=== PATIENT | male | born 1980 | race Caucasian/White ===

== ENCOUNTER 2016-05-24 20:33 | Emergency (ER) | payer OTHER ==
[~2016-05-24] VITALS: Ht 162.6 cm; Wt 125.2 kg
[~2016-05-24 20:33] MED LIST: GLUCTAB PO
[2016-05-24 20:42] VITALS: BP 135/88; PULSE 100; RESP 16; TEMP 98.9; O2SAT 99
--- NOTE | 2016-05-24 21:25 | PD ---
HPI Chief Complaint: Skin Problem Time Seen by Provider: 21:23 Travel History International Travel<30 days: No Contact w/Intl Traveler<30days: No Traveled to known affect area: No History of Present Illness HPI 35-year-old male presents to the emergency department by private transportation the care of his significant other for evaluation of a sore to the left buttock cheek area. Patient has noticed this sore developing over the past week because he has been wearing tight cargo pants and notes that the scene of the cargo pants seems to wedge between the buttock cheek region causing him irritation. Since noting this discomfort he is identified a small area of ulceration to the skin of the left buttock cheek. Patient denies fever chills nausea vomiting. Patient is not noticed any increased swelling redness or tenderness in the area. Patient only notes irritation to the area when he is wearing the tight cargo pants. Patient states other clothing is not causing him any issue. Patient reports he is a diabetic but is diet-controlled. Patient states blood sugars been running around 250 or less. Patient states he just ate a meal prior to arrival to the emergency department. PFSH Past Medical History Asthma: Yes Diabetes: Yes (DOES NOT TAKE MEDICATION) Patient Takes Glucophage: No Diminished Hearing: No GERD: Yes Immunizations Current: No Tetanus Vaccination: Unknown Influenza Vaccination: No Social History Alcohol Use: Yes (RARELY) Tobacco Use: No (QUIT 20 YRS AGO) Substance Use: No Allergies-Medications (Allergen,Severity, Reaction): Coded Allergies: No Known Allergies (Unverified , 05/24/16) Reported Meds & Prescriptions Reported Meds & Active Scripts Active Metformin (Metformin HCl) 500 Mg Tab 500 Mg PO BIDPC With meals Bactroban Topical (Mupirocin) 2 % Cream 1 Applic TOPICAL TID Keflex (Cephalexin) 500 Mg Cap 500 Mg PO Q6H 7 Days Review of Systems Except as stated in HPI: all other systems reviewed are Neg General / Constitutional: No: Fever, Chills HENT: No: Congestion Cardiovascular: No: Chest Pain or Discomfort Respiratory: No: Shortness of Breath Gastrointestinal: No: Nausea, Vomiting, Abdominal Pain Genitourinary: No: Dysuria, Flank Pain Musculoskeletal: No: Myalgias, Arthralgias Skin: Positive Rash (left buttock cheek), No Itching, No Lumps, No Hives Neurologic: No: Weakness, Dizziness, Syncope Psychiatric: No: Anxiety Endocrine: No: Polyuria, Polydipsia Hematologic/Lymphatic: No: Lymph Node Enlargement Physical Exam Narrative GENERAL: Well-developed well-nourished male in no acute distress no respiratory distress SKIN: Warm and dry. Attention left buttock just caudad to the buttock cleft on the left cheek 1 cm by half centimeter however avoid skin breakdown with superficial ulceration no induration no fluctuance no erythema no increased warmth scant serous drainage/seropurulent drainage. Nontender to palpation. HEAD: Normocephalic. EYES: No scleral icterus. No injection or drainage. NECK: Supple, trachea midline. No JVD or lymphadenopathy. CARDIOVASCULAR: Regular rate and rhythm without murmurs, gallops, or rubs. RESPIRATORY: Breath sounds equal bilaterally. No accessory muscle use. GASTROINTESTINAL: Abdomen soft, non-tender, nondistended. MUSCULOSKELETAL: No cyanosis, or edema. BACK: Nontender without obvious deformity. No CVA tenderness. Data Data Last Documented VS Vital Signs Date Time Temp Pulse Resp B/P Pulse Ox O2 Delivery O2 Flow Rate FiO2 05/25/16 01:21 84 18 103/56 97 05/24/16 20:42 98.9 Room Air Orders Wound Culture And Gram Stain (05/24/16 21:33) Blood Glucose (05/24/16 21:33) Complete Blood Count With Diff (05/24/16 21:45) Basic Metabolic Panel (Bmp) (05/24/16 21:45) Urinalysis - C+S If Indicated (05/24/16 21:45) Beta Hydroxybutyrate (Acetone) (05/24/16 21:45) Sodium Chlor 0.9% 1000 Ml Inj (Ns 1000 M (05/24/16 21:45) Insulin Human Regular Inj (Novolin R Inj (05/24/16 21:45) Blood Glucose (05/24/16 21:45) Blood Culture (05/24/16 21:45) Urine Culture (05/24/16 22:10) Levofloxacin (Levaquin) (05/25/16 09:00) Levofloxacin (Levaquin) (05/24/16 23:15) Labs Laboratory Tests Test 05/24/16 22:10 White Blood Count 13.0 TH/MM3 Red Blood Count 5.46 MIL/MM3 Hemoglobin 12.2 GM/DL Hematocrit 37.4 % Mean Corpuscular Volume 68.5 FL Mean Corpuscular Hemoglobin 22.4 PG Mean Corpuscular Hemoglobin 32.7 % Concent Red Cell Distribution Width 14.2 % Platelet Count 291 TH/MM3 Mean Platelet Volume 8.8 FL Neutrophils (%) (Auto) 65.5 % Lymphocytes (%) (Auto) 22.8 % Monocytes (%) (Auto) 5.2 % Eosinophils (%) (Auto) 4.1 % Basophils (%) (Auto) 2.4 % Neutrophils # (Auto) 8.5 TH/MM3 Lymphocytes # (Auto) 3.0 TH/MM3 Monocytes # (Auto) 0.7 TH/MM3 Eosinophils # (Auto) 0.5 TH/MM3 Basophils # (Auto) 0.3 TH/MM3 CBC Comment DIFF FINAL Differential Comment Urine Color YELLOW Urine Turbidity CLEAR Urine pH 6.0 Urine Specific [place] 1.027 Urine Protein NEG mg/dL Urine Glucose (UA) 1000 OR GREATER mg/dL Urine Ketones NEG mg/dL Urine Occult Blood NEG Urine Nitrite NEG Urine Bilirubin NEG Urine Leukocyte Esterase NEG Urine RBC 0-3 /hpf Urine WBC 9-14 /hpf Urine WBC Clumps OCC Urine Squamous Epithelial 0-5 /hpf Cells Urine Bacteria MANY /hpf Microscopic Urinalysis Comment CULTURE INDICATED Sodium Level 135 MEQ/L Potassium Level 4.0 MEQ/L Chloride Level 99 MEQ/L Carbon Dioxide Level 26.0 MEQ/L Anion Gap 10 MEQ/L Blood Urea Nitrogen 11 MG/DL Creatinine 1.00 MG/DL Estimat Glomerular Filtration 85 ML/MIN Rate Random Glucose 465 MG/DL Calcium Level 9.1 MG/DL B-Hydroxybutyrate 0.09 MMOL/L [facility] Medical Decision Making Medical Screen Exam Complete: Yes Emergency Medical Condition: Yes Medical Record Reviewed: Yes Interpretation(s) Laboratory Tests Test 05/24/16 22:10 White Blood Count 13.0 TH/MM3 Red Blood Count 5.46 MIL/MM3 Hemoglobin 12.2 GM/DL Hematocrit 37.4 % Mean Corpuscular Volume 68.5 FL Mean Corpuscular Hemoglobin 22.4 PG Mean Corpuscular Hemoglobin 32.7 % Concent Red Cell Distribution Width 14.2 % Platelet Count 291 TH/MM3 Mean Platelet Volume 8.8 FL Neutrophils (%) (Auto) 65.5 % Lymphocytes (%) (Auto) 22.8 % Monocytes (%) (Auto) 5.2 % Eosinophils (%) (Auto) 4.1 % Basophils (%) (Auto) 2.4 % Neutrophils # (Auto) 8.5 TH/MM3 Lymphocytes # (Auto) 3.0 TH/MM3 Monocytes # (Auto) 0.7 TH/MM3 Eosinophils # (Auto) 0.5 TH/MM3 Basophils # (Auto) 0.3 TH/MM3 CBC Comment DIFF FINAL Differential Comment Urine Color YELLOW Urine Turbidity CLEAR Urine pH 6.0 Urine Specific [place] 1.027 Urine Protein NEG mg/dL Urine Glucose (UA) 1000 OR GREATER mg/dL Urine Ketones NEG mg/dL Urine Occult Blood NEG Urine Nitrite NEG Urine Bilirubin NEG Urine Leukocyte Esterase NEG Urine RBC 0-3 /hpf Urine WBC 9-14 /hpf Urine WBC Clumps OCC Urine Squamous Epithelial 0-5 /hpf Cells Urine Bacteria MANY /hpf Microscopic Urinalysis Comment CULTURE INDICATED Sodium Level 135 MEQ/L Potassium Level 4.0 MEQ/L Chloride Level 99 MEQ/L Carbon Dioxide Level 26.0 MEQ/L Anion Gap 10 MEQ/L Blood Urea Nitrogen 11 MG/DL Creatinine 1.00 MG/DL Estimat Glomerular Filtration 85 ML/MIN Rate Random Glucose 465 MG/DL Calcium Level 9.1 MG/DL B-Hydroxybutyrate 0.09 MMOL/L Differential Diagnosis Pressure ulcer, stasis ulcer, erosive dermatitis, abscess, cellulitis, uncontrolled diabetes, DKA Narrative Course No lower extremity pain or swelling or tenderness to palpation BG 461; patient reports recently post prandial just prior to arrival to the ED Patient has been diabetic 2 years has not had any medical management for at least one year presents now with skin ulceration and elevated blood glucose; IV access obtained specimens collected and sent for resulting patient administered subcutaneous dose of regular insulin Culture obtained from ulceration site Patient with improved blood glucose after 10 units of subcutaneous regular insulin, 386; patient is stable for outpatient management and also provided Rx for metformin Diagnosis Primary Impression: Pressure sore on buttocks Qualified Code: L89.321 - Decubitus ulcer of left buttock, stage 1 Additional Impressions: UTI (urinary tract infection) Diabetes Qualified Code: E11.622 - Type 2 diabetes mellitus with other skin ulcer, without long-term current use of insulin Referrals: Primary Care Physician call for appointment Patient Instructions: General Instructions Departure Forms: Tests/Procedures, Work Release Special Instructions: No work 2 days Additional Instructions: Follow-up with primary care physician/clinic call office in a.m. No work 2 days Take medication as prescribed Return to the emergency department for pain fever vomiting or any concerns Monitor blood sugars with meals Med/Other Pt SpecificInfo: Prescription(s) given Scripts Metformin 500 Mg [id number] Mg PO BIDPC #60 TAB Ref 0 With meals Prov:Krupa Castellano MD 05/25/16 Mupirocin Topical (Bactroban Topical)2 % Cream1 Applic TOPICAL TID #1 TUBE Ref 0 Prov:Krupa Castellano MD 05/24/16 Cephalexin (Keflex)500 Mg [id number] Mg PO Q6H 7 Days Ref 0 Prov:Krupa Castellano MD 05/24/16 Disposition: 01 DISCHARGE HOME Condition: Stable Krupa Castellano MD May 24, 2016 21:25
[2016-05-24] MEDS ORDERED: MUPI2%T TOPICAL (21:33)
[2016-05-24] MEDS ORDERED: CEPH-460 PO (21:33)
[2016-05-24 21:45] VITALS: PULSE 107
[2016-05-24] MEDS ORDERED: INSULIN HUMAN REGULAR 1,000 UNITS/10 ML VIAL SQ ONE (21:45)
[2016-05-24] MEDS ORDERED: SODIUM CHLOR 0.9% 1000 ML INJ 1,000 ML IV ONE (21:45)
[2016-05-24 22:23] LABS: BLOOD, URINE NEG (NEG); KETONE, URINE NEG (NEG); NITRITE,URINE NEG (NEG)
[2016-05-24 22:24] LABS: AUTOMATED NEUTROPHIL # 8.5 TH/MM3 (1.8-7.7); BASOPHIL # 0.3 TH/MM3 (0-0.2); BASOPHIL % 2.4 % (0.0-2.0); EOSINOPHIL # 0.5 TH/MM3 (0-0.4); EOSINOPHIL % 4.1 % (0.0-4.0); HEMATOCRIT 37.4 % (39.0-51.0); LYMPH % 22.8 % (9.0-44.0); MEAN CELL VOLUME 68.5 FL (80.0-100.0); MEAN CORPUSCULAR HEMOGLOBIN 22.4 PG (27.0-34.0); MEAN CORPUSCULAR HGB CONC 32.7 % (32.0-36.0); MONO % 5.2 % (0.0-8.0); NEUT % 65.5 % (16.0-70.0); PLATELET COUNT 291 TH/MM3 (150-450); RED BLOOD COUNT 5.46 MIL/MM3 (4.50-5.90); RED CELL DISTRIBUTION WIDTH 14.2 % (11.6-17.2)
[2016-05-24 22:25] LABS: HEMO FLAGS DIFF FINAL
[2016-05-24 22:27] LABS: GLUCOSE,URINE 1000 OR GREATER mg/dL (NEG); URINE COLOR YELLOW (YELLW/STRAW)
[2016-05-24 22:28] LABS: BACTERIA, URINE MANY /hpf; COMMENT (UR) CULTURE INDICATED; CULTURE IF INDICATED CULTURE INDICATED; RBC, URINE 0-3 /hpf (0-3); SQUAMOUS EPITHELIAL CELL URINE 0-5 /hpf (0-5)
[2016-05-24 22:43] LABS: BETA-HYDROXYBUTYRATE 0.09 MMOL/L (0.00-0.39)
[2016-05-24] MEDS ORDERED: LEVOFLOXACIN 500 MG TAB PO ONE (23:15)
[2016-05-25] MEDS ORDERED: METF500T PO (00:50)
[2016-05-25 01:21] VITALS: BP 103/56
[2016-05-25] MEDS ORDERED: LEVOFLOXACIN 500 MG TAB PO SCH (09:00)
== END 2016-05-25 01:23 | disposition home or self-care (01) ==
LOC: PHED 20:33
DX: L89.300 Pressure ulcer of unspecified buttock, unstageable (principal); E11.65 Type 2 diabetes mellitus with hyperglycemia; E11.622 Type 2 diabetes mellitus with other skin ulcer; N39.0 Urinary tract infection, site not specified; B96.20 Unspecified Escherichia coli [E. coli] as the cause of diseases classified elsewhere; Z79.4 Long term (current) use of insulin
CPT/HCPCS: 80048; 81001; 82010; 85025; 87040; 87070; 87077; 87086; 87186; 96360; 96372; 99283; J1815; J7030; 87205

== ENCOUNTER 2017-06-15 09:51 | Emergency (ER) | payer SELFPAY, OTHER | END 2017-06-15 10:46 | disposition home or self-care (01) | LOC: NEPK 09:51 | DX: L30.9 Dermatitis, unspecified (principal); E11.9 Type 2 diabetes mellitus without complications; Z79.84 Long term (current) use of oral hypoglycemic drugs | CPT/HCPCS: 99283 ==